=== PATIENT | female | born 1980 | race African-American/Black ===

== ENCOUNTER 2017-02-18 16:46 | Emergency (ER) | payer SELFPAY ==
[~2017-02-18] VITALS: Ht 170.2 cm; Wt 113.4 kg
[2017-02-18 17:15] VITALS: BP 133/60
[2017-02-18 17:56] LABS: BACTERIA,URINE FEW /HPF (0-FEW); BILIRUBIN,URINE NEGATIVE (NEG); GLUCOSE,URINE NEGATIVE (NEG); NITRITE,URINE NEGATIVE (NEG); PROTEIN,URINE NEGATIVE (NEG-TRACE); RBC,URINE 0 /HPF (0-2); SQUAMOUS EPITHELIAL CELL,UR MOD /LPF; UROBILINOGEN,URINE 0.2 mg/dL (0.2 mg/dL); WBC,URINE 0 /HPF (0-4)
[2017-02-18] MEDS ORDERED: FLUCONAZOLE 100 MG TABLET. PO ONE (18:00)
[2017-02-18] MEDS ORDERED: FENTANYL PF 100 MCG/2 ML VIAL. IV ONE (18:00)
[2017-02-18] MEDS ORDERED: FAMOTIDINE 20 MG/2 ML VIAL IVP ONE (18:00)
[2017-02-18] MEDS ORDERED: IV NORMAL SALINE 1000ML BAG 1,000 ML IV ONE (18:00)
[2017-02-18 18:08] LABS: BASO % 0 % (0-3); EOS % 1 % (0-3); HEMATOCRIT 39.9 % (36.0-47.0); LYMPH # 0.6 x10^3/uL (1.0-4.8); LYMPH % 11 % (24-48); MEAN CORPUSCULAR HEMOGLOBIN 30 pg (25-35); MEAN CORPUSCULAR HGB CONC 33 g/dL (31-37); MEAN CORPUSCULAR VOLUME 92 fL (79-100); MONO % 7 % (0-9); NEUT % 82 % (31-73); PLATELET COUNT 153 x10^3/uL (140-400); RED BLOOD COUNT 4.33 x10^6/uL (3.50-5.40); RED CELL DISTRIBUTION WIDTH 13.6 % (11.5-14.5); WHITE BLOOD COUNT 5.5 x10^3/uL (4.0-11.0)
[2017-02-18 18:31] LABS: CALCIUM 8.8 mg/dL (8.5-10.1); CREATININE 0.9 mg/dL (0.6-1.0); GFR 70.8
[2017-02-18] MEDS ORDERED: FAMO-63 PO (19:34)
[2017-02-18] MEDS ORDERED: ONDA4TAB7 PO (19:34)
[2017-02-18] MEDS ORDERED: HYDR25CA PO (19:34)
--- NOTE | 2017-02-18 19:34 | PHYS DOC ---
Past Medical History Past Medical History: STD Additional Past Medical Histor: ovarian cysts, stomach ulcer, Past Surgical History: Other Additional Past Surgical Histo: umbilical hernia repair Alcohol Use: None Drug Use: None Adult General Chief Complaint Chief Complaint: FLU SYMPTOM HPI HPI 36-year-old female who states she's having generalized myalgias and flulike illness for the last several days. She states she has children at home that have been recently ill with viral type illness. She states she's been nauseated with an upset stomach but has had no vomiting. He has had little to eat or drink today. She denies any history of health problems that she is aware of. She denies any recent illicit drug use or smoking history. Pt is anxious in the room but non-toxic in appearance. Review of Systems Review of Systems Constitutional: Has fever, has chills [] Eyes: Denies change in visual acuity, redness, or eye pain [] HENT: Denies nasal congestion or sore throat [] Respiratory: Denies cough or shortness of breath [] Cardiovascular: No additional information not addressed in HPI [] GI: Has abdominal pain, has nausea, denies vomiting, denies bloody stools or diarrhea [] : Denies dysuria or hematuria [] Musculoskeletal: Denies back pain or joint pain [] Integument: Denies rash or skin lesions [] Neurologic: Denies headache, focal weakness or sensory changes [] Endocrine: Denies polyuria or polydipsia [] Current Medications Current Medications Current Medications Medications (Trade) Dose Ordered Sig/Samantha Start Time Stop Time Status Last Admin Dose Admin Famotidine (Pepcid) 20 mg 1X ONCE 02/18/17 18:00 02/18/17 18:01 DC 02/18/17 18:41 20 MG Fentanyl Citrate (Fentanyl 2ml Vial) 50 mcg 1X ONCE 02/18/17 18:00 02/18/17 18:01 DC 02/18/17 18:43 50 MCG Fluconazole (Diflucan) 100 mg 1X ONCE 02/18/17 18:00 02/18/17 18:01 DC 02/18/17 18:44 100 MG Sodium Chloride (Iv Sodium Chloride 0.9% 1000ml Bag) 1,000 ml @ 1,000 mls/hr 1X ONCE 02/18/17 18:00 02/18/17 18:59 DC 02/18/17 18:53 1,000 MLS/HR Allergies Allergies Allergies Coded Allergies Type Severity Reaction Last Updated Verified naproxen Allergy Intermediate 02/18/17 Yes Physical Exam Physical Exam Constitutional: Well developed, well nourished, no acute distress, non-toxic appearance. [] HENT: Normocephalic, atraumatic, bilateral external ears normal, oropharynx moist, no oral exudates, nose normal. [] Eyes: PERRLA, EOMI, conjunctiva normal, no discharge. [] Neck: Normal range of motion, no tenderness, supple, no stridor. [] Cardiovascular:Heart rate regular rhythm, no murmur [] Lungs & Thorax: Bilateral breath sounds clear to auscultation [] Abdomen: Bowel sounds normal, soft, no tenderness, no masses, no pulsatile masses. [] Skin: Warm, dry, no erythema, no rash. [] Back: No tenderness, no CVA tenderness. [] Extremities: No tenderness, no cyanosis, no clubbing, ROM intact, no edema. [] Neurologic: Alert and oriented X 3, normal motor function, normal sensory function, no focal deficits noted. [] Psychologic: Affect normal, judgement normal, mood normal. [] Current Patient Data Vital Signs Vital Signs Date Time Temp Pulse Resp B/P Pulse Ox O2 Delivery O2 Flow Rate FiO2 02/18/17 18:43 18 97 Room Air 02/18/17 17:15 99.9 91 133/60 99.9 Lab Values Laboratory Tests Test 02/18/17 17:00 02/18/17 18:50 White Blood Count 5.5x10^3/uL (4.0-11.0) Red Blood Count 4.33x10^6/uL (3.50-5.40) Hemoglobin 13.0g/dL (12.0-15.5) Hematocrit 39.9% (36.0-47.0) Mean Corpuscular Volume 92fL (79-100) Mean Corpuscular Hemoglobin 30pg (25-35) Mean Corpuscular Hemoglobin Concent 33g/dL (31-37) Red Cell Distribution Width 13.6% (11.5-14.5) Platelet Count 153x10^3/uL (140-400) Neutrophils (%) (Auto) 82% (31-73) H Lymphocytes (%) (Auto) 11% (24-48) L Monocytes (%) (Auto) 7% (0-9) Eosinophils (%) (Auto) 1% (0-3) Basophils (%) (Auto) 0% (0-3) Neutrophils # (Auto) 4.4x10^3uL (1.8-7.7) Lymphocytes # (Auto) 0.6x10^3/uL (1.0-4.8) L Monocytes # (Auto) 0.4x10^3/uL (0.0-1.1) Eosinophils # (Auto) 0.0x10^3/uL (0.0-0.7) Basophils # (Auto) 0.0x10^3/uL (0.0-0.2) Urine Collection Type Unknown Urine Color Yellow Urine Clarity Clear Urine pH 6.0 Urine Specific [place] 1.015 Urine Protein Negativemg/dL (NEG-TRACE) Urine Glucose (UA) Negativemg/dL (NEG) Urine Ketones (Stick) Negativemg/dL (NEG) Urine Blood Negative (NEG) Urine Nitrite Negative (NEG) Urine Bilirubin Negative (NEG) Urine Urobilinogen Dipstick 0.2mg/dL (0.2 mg/dL) Urine Leukocyte Esterase Negative (NEG) Urine RBC 0/HPF (0-2) Urine WBC 0/HPF (0-4) Urine Squamous Epithelial Cells Mod/LPF Urine Bacteria Few/HPF (0-FEW) Urine Mucus Mod/LPF Sodium Level 139mmol/L (136-145) Potassium Level 4.0mmol/L (3.5-5.1) Chloride Level 105mmol/L (98-107) Carbon Dioxide Level 22mmol/L (21-32) Anion Gap 12 (6-14) Blood Urea Nitrogen 12mg/dL (7-20) Creatinine 0.9mg/dL (0.6-1.0) Estimated GFR (Cockcroft-Gault) 70.8 Glucose Level 86mg/dL (70-99) Calcium Level 8.8mg/dL (8.5-10.1) Influenza Type A Antigen Negative (NEGATIVE) Influenza Type B Antigen Negative (NEGATIVE) Laboratory Tests 02/18/17 17:00 Laboratory Tests 02/18/17 17:00 EKG EKG [] Radiology/Procedures Radiology/Procedures [] Course & Med Decision Making Course & Med Decision Making Pertinent Labs and Imaging studies reviewed. (See chart for details) This 36-year-old female with subjective febrile illness had a laboratory workup that was unrevealing. Patient is given fluid bolus and a dose of pain control. Patient was afebrile while in the department. I will be discharging her with a course of Pepcid and Zofran with instruction to follow closely with her primary care physician. Patient was provided follow up instructions and a primary care physician contact as she does not have one. Her symptoms are likely related to a viral illness. Her flu swabs were negative. She was discharged feeling improved. Dragon Disclaimer Dragon Disclaimer This electronic medical record was generated, in whole or in part, using a voice recognition dictation system. Departure Departure Impression: Primary Impression: Viral syndrome Additional Impressions: Myalgia Nausea Disposition: HOME, SELF-CARE Admitting Physician: Other Condition: IMPROVED Referrals: NON,STAFF (PCP) Patient Instructions: Viral Exanthems, Adult, Viral Gastroenteritis, Easy-to- Read Additional Instructions: Please take your medications as prescribed and follow up with your primary doctor in the next 2-3 days for your symptoms. Continue to stay well hydrated at home. Return to the ER if you develop any worsening of your symptoms. Scripts Hydroxyzine Pamoate (Vistaril)25 Mg [id number] Mg PO 1X PRN ITCHING #15 CAP Prov:DESIREE SCHWARZ DO 02/18/17 Famotidine (Pepcid)20 Mg [id number] Mg PO HS #10 TAB Prov:DESIREE SCHWARZ DO 02/18/17 Ondansetron Hcl (Zofran)4 Mg Tablet4 Mg PO BID PRN NAUSEA/VOMITING #10 TAB Prov:DESIREE SCHWARZ DO 02/18/17 Problem Qualifiers DESIREE SCHWARZ DO Feb 18, 2017 19:34
[2017-02-18 20:07] LABS: OBC FLU VALID
== END 2017-02-18 19:45 | disposition home or self-care (01) ==
LOC: ER 16:46
DX: B34.9 Viral infection, unspecified (principal); M79.1 Myalgia; R11.0 Nausea; Z87.19 Personal history of other diseases of the digestive system; Z88.6 Allergy status to analgesic agent
CPT/HCPCS: 36415; 80048; 81001; 81025; 85027; 87804; 96361; 96374; 96375; 99284; J3010; J7030; S0028

== ENCOUNTER 2017-11-05 11:32 | Emergency (ER) | payer OTHER ==
[~2017-11-05] VITALS: Ht 170.2 cm; Wt 113.4 kg
[~2017-11-05 11:32] MED LIST: FAMO-63 PO; HYDR25CA PO; ONDA4TAB7 PO
[2017-11-05] MEDS ORDERED: ACETAMINOPHEN 500 MG TABLET PO ONE (12:00)
[2017-11-05] MEDS ORDERED: IPRATRPIUM/ALBUTEROL 0.5/2.5MG 3 ML NEBU. NEB ONE (12:00)
--- NOTE | 2017-11-05 12:11 | PHYS DOC ---
Past Medical History Past Medical History: STD Additional Past Medical Histor: ovarian cysts, stomach ulcer, Past Surgical History: Other Additional Past Surgical Histo: umbilical hernia repair Alcohol Use: None Drug Use: None Adult General Chief Complaint Chief Complaint: COUGH HPI HPI Patient is a 37 year old female who presents ambulatory to the ED. Patient states she is 9 weeks . Patient complains of a cough, her face and head is hurting, yellow green phlegm which causes her to be nauseated. She has felt short of air. She has had chills and felt feverish. Her temp is 100. She's been sick for about 24 hours. Denies vomiting. She did take one Tylenol 500 mg total earlier this morning before 8:00. Patient has not had a flu shot. Patient has her new OB appointment at [facility] tomorrow. She has had gestational diabetes with previous pregnancies. Also has a history of asthma and takes pro-air inhaler. She last used it about 2 hours ago. Review of Systems Review of Systems Constitutional: Positive fever and chills. HENT: Positive face and nasal congestion and pain, throat is scratchy from coughing so much Respiratory: As in history of present illness GI: Denies vomiting : Patient states she is 9 weeks Current Medications Current Medications Current Medications Medications (Trade) Dose Ordered Sig/Samantha Start Time Stop Time Status Last Admin Dose Admin Acetaminophen (Tylenol) 1,000 mg 1X ONCE 11/05/17 12:00 11/05/17 12:01 DC 11/05/17 12:10 1,000 MG Albuterol/ Ipratropium (Duoneb) 3 ml 1X ONCE 11/05/17 12:00 11/05/17 12:01 DC 11/05/17 12:04 3 ML Oseltamivir Phosphate (Tamiflu) 75 mg 1X ONCE 11/05/17 13:00 11/05/17 13:01 DC 11/05/17 13:04 75 MG Allergies Allergies Allergies Coded Allergies Type Severity Reaction Last Updated Verified naproxen Allergy Intermediate 02/18/17 Yes Physical Exam Physical Exam Constitutional: Well developed, well nourished, alert, mentating normally, appears to not feel well, appears to be having chills HENT: Normocephalic, atraumatic, bilateral external ears normal, nose normal. [ ] Eyes: conjunctiva normal, no discharge. [] Neck: Normal range of motion, no stridor. [] Cardiovascular:Heart rate regular rhythm, no murmur [] Lungs & Thorax: Breath sounds present bilaterally, expiratory wheezes present throughout, good air movement throughout Skin: Warm, dry, no erythema, no rash. [] Extremities: No tenderness, no cyanosis, no clubbing, ROM intact, no edema. [] Neurologic: Alert and oriented X 3, normal motor function, no focal deficits noted. [] Current Patient Data Vital Signs Vital Signs Date Time Temp Pulse Resp B/P (MAP) Pulse Ox O2 Delivery O2 Flow Rate FiO2 11/05/17 13:31 104 123/60 (81) Room Air 11/05/17 12:04 96 11/05/17 11:45 100.4 20 100.4 Lab Values Laboratory Tests Test 11/05/17 11:56 Influenza Type A Antigen Negative (NEGATIVE) Influenza Type B Antigen Positive (NEGATIVE) EKG EKG [] Radiology/Procedures Radiology/Procedures [] Course & Med Decision Making Course & Med Decision Making Pertinent Labs and Imaging studies reviewed. (See chart for details) 37-year-old female who is 9 weeks presents with 24 hours of fever, chills, cough, face, sinus congestion. She does have a diagnosis of asthma and is wheezing. We will give her some Tylenol, a breathing treatment, and check an influenza test. Influenza swab positive for influenza B. She was given her first dose of Tamiflu. She felt better after a dose of Tylenol and a breathing treatment. I believe she is stable for discharge. She was cautioned to stay home to avoid spreading influenza. See instructions for plan. [] Dragon Disclaimer Dragon Disclaimer This electronic medical record was generated, in whole or in part, using a voice recognition dictation system. Departure Departure Impression: Primary Impression: Influenza B Additional Impression: Asthma attack Disposition: 01 HOME, SELF-CARE Condition: STABLE Referrals: NICOLE CANNON JR, MD (PCP) Additional Instructions: Your test was positive for influenza. Influenza is a contagious virus. We will start you on a medication to help keep it from being so bad. You had your first dose in the emergency department, your next dose is due at bedtime tonight. Stay inside, stay away from other people, reschedule your new OB appointment, you should not go to the OB doctor's office while you have influenza. Good handwashing, if family members start to get sick, they should see their doctor right away. Drink plenty of fluids. Take Tylenol/acetaminophen 1000 mg every 6 hours for fever. Scripts Prednisone (PREDNISONE) 20 Mg Tablet 40 MG PO DAILY for asthma for 5 Days, #10 TAB Prov: SOULEYMANE OTERO MD 11/05/17 Oseltamivir Phosphate (TAMIFLU) 75 Mg Capsule 1 CAP PO BID for influenza, #10 CAP Prov: SOULEYMANE OTERO MD 11/05/17 Problem Qualifiers SOULEYMANE OTERO MD Nov 05, 2017 12:11
[2017-11-05 12:30] LABS: OBC FLU VALID
[2017-11-05] MEDS ORDERED: OSELTAMIVIR 75 MG CAPSULE PO ONE (13:00)
[2017-11-05 13:31] VITALS: BP 123/60
[2017-11-05] MEDS ORDERED: OSEL75CA PO (13:31)
[2017-11-05] MEDS ORDERED: PRED20TA PO (13:35)
== END 2017-11-05 13:48 | disposition home or self-care (01) ==
LOC: ER 11:32
DX: O99.511 Diseases of the respiratory system complicating pregnancy, first trimester (principal); J10.1 Influenza due to other identified influenza virus with other respiratory manifestations; J45.909 Unspecified asthma, uncomplicated; Z87.19 Personal history of other diseases of the digestive system; Z3A.09 9 weeks gestation of pregnancy; Z79.899 Other long term (current) drug therapy; Z88.6 Allergy status to analgesic agent
CPT/HCPCS: 87804; 94640; 99284; J7620

== ENCOUNTER 2018-02-16 14:23 | Observation (INO) | payer OTHER | END 2018-02-16 16:50 | disposition home or self-care (01) | LOC: 3 SO LND 14:23 | DX: O26.899 Other specified pregnancy related conditions, unspecified trimester (principal); R30.9 Painful micturition, unspecified; M54.9 Dorsalgia, unspecified; Z3A.00 Weeks of gestation of pregnancy not specified | CPT/HCPCS: G0378; G0379 ==

== ENCOUNTER 2020-04-26 18:46 | Emergency (ER) | payer OTHER ==
[~2020-04-26] VITALS: Ht 172.1 cm; Wt 110.5 kg
[~2020-04-26 18:46] MED LIST changes: +OSEL75CA PO; +PRED20TA PO
[2020-04-26 19:31] LABS: BILIRUBIN,URINE NEGATIVE (NEG); CLARITY,URINE CLOUDY; NITRITE,URINE POSITIVE (NEG); PH,URINE 6.5 (<5.0-8.0); PROTEIN,URINE 30 mg/dL (NEG-TRACE); UROBILINOGEN,URINE 0.2 mg/dL (0.2 mg/dL)
[2020-04-26 19:39] LABS: COLOR,URINE YELLOW
[2020-04-26 19:40] LABS: SQUAMOUS EPITHELIAL CELL,UR FEW /LPF
[2020-04-26 19:41] LABS: BACTERIA,URINE MODERATE /HPF (0-FEW); WBC,URINE TNTC /HPF (0-4)
[2020-04-26] MEDS ORDERED: CEPHALEXIN 250 MG CAPSULE. PO STA (20:14)
[2020-04-26] MEDS ORDERED: FLUCONAZOLE 100 MG TABLET. PO ONE (20:15)
[2020-04-26 20:16] VITALS: BP 114/68
--- NOTE | 2020-04-26 20:25 | PHYS DOC ---
Past Medical History Past Medical History: Asthma, STD, Other Additional Past Medical Histor: ovarian cysts, stomach ulcer, PREDIABETES Past Surgical History: , Other Additional Past Surgical Histo: umbilical hernia repair Smoking Status: Never Smoker Alcohol Use: Occasionally Drug Use: Cocaine, Marijuana General Adult EDM: Chief Complaint: PAIN ON URINATION HPI: HPI: Patient is a 40 year old female who presents to the ED today complaining of suprapubic abdominal pain with dysuria and frequency, symptoms began a week ago. Patient denies any fever. Denies any chance she is . She reports trying to use Azo with no relief. Review of Systems: Review of Systems: Constitutional: Denies fever or chills. [] Eyes: Denies change in visual acuity. [] HENT: Denies nasal congestion or sore throat. [] Respiratory: Denies cough or shortness of breath. [] Cardiovascular: Denies chest pain or edema. [] GI: Denies abdominal pain, nausea, vomiting, bloody stools or diarrhea. [] : Reports suprapubic pain. Reports dysuria. Reports frequency. Musculoskeletal: Denies back pain or joint pain. [] Integument: Denies rash. [] Neurologic: Denies headache, focal weakness or sensory changes. [] Endocrine: Denies polyuria or polydipsia. [] Lymphatic: Denies swollen glands. [] Psychiatric: Denies depression or anxiety. [] Heart Score: Risk Factors: Risk Factors: DM, Current or recent (<one month) smoker, HTN, HLP, family history of CAD, obesity. Risk Scores: Score 0 - 3: 2.5% MACE over next 6 weeks - Discharge Home Score 4 - 6: 20.3% MACE over next 6 weeks - Admit for Clinical Observation Score 7 - 10: 72.7% MACE over next 6 weeks - Early Invasive Strategies Current Medications: Current Medications Medications (Trade) Dose Ordered Sig/Samantha Start Time Stop Time Status Last Admin Dose Admin Cephalexin HCl (Keflex) 500 mg 1X STAT 04/26/20 20:14 04/26/20 20:23 DC Fluconazole (Diflucan) 150 mg 1X ONCE 04/26/20 20:15 04/26/20 20:23 DC Allergies: Allergies: Allergies Coded Allergies Type Severity Reaction Last Updated Verified naproxen Allergy Intermediate 02/18/17 Yes Physical Exam: PE: Constitutional: Well developed, well nourished, no acute distress, non-toxic appearance. [] HENT: Normocephalic, atraumatic, bilateral external ears normal, oropharynx moist, no oral exudates, nose normal. [] Eyes: PERRLA, EOMI, conjunctiva normal, no discharge. [] Neck: Normal range of motion, no tenderness, supple, no stridor. [] Cardiovascular:Heart rate regular rhythm, no murmur [] Lungs & Thorax: Bilateral breath sounds clear to auscultation [] Abdomen: Bowel sounds normal, soft, no tenderness, no masses, no pulsatile mass es. [] Skin: Warm, dry, no erythema, no rash. [] Back: No tenderness, no CVA tenderness. [] Extremities: No tenderness, no cyanosis, no clubbing, ROM intact, no edema. [] Neurologic: Alert and oriented X 3, normal motor function, normal sensory function, no focal deficits noted. [] Psychologic: Affect normal, judgement normal, mood normal. [] Current Patient Data: Labs: Laboratory Tests Test 04/26/20 19:00 04/26/20 19:24 Urine Collection Type Unknown Urine Color Yellow Urine Clarity Cloudy Urine pH 6.5 (<5.0-8.0) Urine Specific [place] 1.025 (1.000-1.030) Urine Protein 30 mg/dL (NEG-TRACE) Urine Glucose (UA) >=1000 mg/dL (NEG) Urine Ketones (Stick) Negative mg/dL (NEG) Urine Blood Moderate (NEG) Urine Nitrite Positive (NEG) Urine Bilirubin Negative (NEG) Urine Urobilinogen Dipstick 0.2 mg/dL (0.2 mg/dL) Urine Leukocyte Esterase Large (NEG) Urine RBC 6-10 /HPF (0-2) Urine WBC Tntc /HPF (0-4) Urine Squamous Epithelial Cells Few /LPF Urine Bacteria Moderate /HPF (0-FEW) Urine Mucus Slight /LPF POC Urine HCG, Qualitative Hcg negative (Negative) Vital Signs: Vital Signs Date Time Temp Pulse Resp B/P (MAP) Pulse Ox O2 Delivery O2 Flow Rate FiO2 04/26/20 19:10 98.2 88 16 123/72 (89) 99 Room Air 98.2 EKG: EKG: [] Radiology/Procedures: Radiology/Procedures: [] Course & Med Decision Making: Course & Med Decision Making Pertinent Labs and Imaging studies reviewed. (See chart for details) This is a 40-year-old female patient presenting to the ED today with UTI symptoms. Positive for UTI, discharged with cephalexin and fluconazole per her request for possible yeast infection on antibiotics. Instructed to push fluids. Follow-up with PCP in 1 to 2 weeks. Dragon Disclaimer: Dragon Disclaimer: This electronic medical record was generated, in whole or in part, using a voice recognition dictation system. Departure Departure Impression: Primary Impression: Urinary tract infection Qualified Codes: N39.0 - Urinary tract infection, site not specified Disposition: HOME, SELF-CARE Condition: STABLE Referrals: NICOLE CANNON JR, MD (PCP) Follow-up in 1 to 2 weeks Patient Instructions: Urinary Tract Infection Additional Instructions: You have urinary tract infection. Complete your antibiotics. Follow-up with your doctor in 1 to 2 weeks. Scripts Fluconazole (DIFLUCAN) 150 Mg Tablet 1 TAB PO ONCE, #1 TAB take in 7 days Prov: MAGY ADDISON APRN 04/26/20 Cephalexin (CEPHALEXIN) 500 Mg Tablet 1 TAB PO BID, #14 TAB Prov: MAGY ADDISON APRN 04/26/20 Justicifation of Admission Dx: Justifications for Admission: Justification of Admission Dx: N/A MAGY ADDISON APRN Apr 26, 2020 20:25
[2020-04-26] MEDS ORDERED: CEPH500T PO (20:28)
[2020-04-26] MEDS ORDERED: FLUC150T PO (20:28)
== END 2020-04-26 20:35 | disposition home or self-care (01) ==
LOC: ER 18:46
DX: N39.0 Urinary tract infection, site not specified (principal); J45.909 Unspecified asthma, uncomplicated; Z98.890 Other specified postprocedural states; Z88.5 Allergy status to narcotic agent
CPT/HCPCS: 81001; 81025; 87086; 99283

== ENCOUNTER 2020-07-19 06:01 | Emergency (ER) | payer OTHER ==
[~2020-07-19] VITALS: Ht 172.7 cm; Wt 112.2 kg
[~2020-07-19 06:01] MED LIST changes: +CEPH500T PO; +FLUC150T PO
[2020-07-19] MEDS ORDERED: FAMOTIDINE 20 MG/2 ML VIAL IVP ONE (07:30)
[2020-07-19] MEDS ORDERED: LIDO:MAALOX 1:1 20 ML SINGLE DOSE. SWSW ONE (07:30)
--- NOTE | 2020-07-19 07:42 | PHYS DOC ---
Past Medical History Past Medical History: Asthma, STD, Other Additional Past Medical Histor: ovarian cysts, stomach ulcer, PREDIABETES Past Surgical History: , Other Additional Past Surgical Histo: umbilical hernia repair Smoking Status: Never Smoker Alcohol Use: Occasionally Drug Use: Cocaine, Marijuana General Adult EDM: Chief Complaint: MULTIPLE COMPLAINTS HPI: HPI: Patient is a 40 year old female who presented to ER today for evaluation of epigastric abdominal pain that she has been dealing with for several months. Patient has history of acid reflux, she was supposed to take PPI however she said whenever she was on PPI increased the chance of her getting UTI since she started taking the PPI. So she stopped taking the medication. Patient denies any fever, no cough, no chest pain, no trouble breathing. Review of Systems: Review of Systems: Constitutional: Denies fever or chills. [] Eyes: Denies change in visual acuity. [] HENT: Denies nasal congestion or sore throat. [] Respiratory: Denies cough or shortness of breath. [] Cardiovascular: Denies chest pain or edema. [] GI: Positive for abdominal pain, nausea no diarrhea. No vomiting. : Denies dysuria. [] Musculoskeletal: Denies back pain or joint pain. [] Integument: Denies rash. [] Neurologic: Denies headache, focal weakness or sensory changes. [] Endocrine: Denies polyuria or polydipsia. [] Lymphatic: Denies swollen glands. [] Psychiatric: Denies depression or anxiety. [] Heart Score: Risk Factors: Risk Factors: DM, Current or recent (<one month) smoker, HTN, HLP, family history of CAD, obesity. Risk Scores: Score 0 - 3: 2.5% MACE over next 6 weeks - Discharge Home Score 4 - 6: 20.3% MACE over next 6 weeks - Admit for Clinical Observation Score 7 - 10: 72.7% MACE over next 6 weeks - Early Invasive Strategies Current Medications: Current Medications Medications (Trade) Dose Ordered Sig/Samantha Start Time Stop Time Status Last Admin Dose Admin Famotidine (Pepcid Vial) 20 mg 1X ONCE 07/19/20 07:30 07/19/20 07:31 DC Multi-Ingredient Mouthwash/Gargle (Gi Cocktail) 20 ml 1X ONCE 07/19/20 07:30 07/19/20 07:31 DC Allergies: Allergies: Allergies Coded Allergies Type Severity Reaction Last Updated Verified naproxen Allergy Intermediate 02/18/17 Yes Physical Exam: PE: Constitutional: Well developed, well nourished, no acute distress, non-toxic appearance. [] HENT: Normocephalic, atraumatic, bilateral external ears normal, oropharynx moist, no oral exudates, nose normal. [] Eyes: PERRLA, EOMI, conjunctiva normal, no discharge. [] Neck: Normal range of motion, no tenderness, supple, no stridor. [] Cardiovascular:Heart rate regular rhythm, no murmur [] Lungs & Thorax: Bilateral breath sounds clear to auscultation [] Abdomen: Bowel sounds normal, soft, no tenderness, no masses, no pulsatile masses. [] Skin: Warm, dry, no erythema, no rash. [] Back: No tenderness, no CVA tenderness. [] Extremities: No tenderness, no cyanosis, no clubbing, ROM intact, no edema. [] Neurologic: Alert and oriented X 3, normal motor function, normal sensory function, no focal deficits noted. [] Psychologic: Affect normal, judgement normal, mood normal. [] Current Patient Data: Labs: Laboratory Tests Test 07/19/20 06:30 07/19/20 06:38 07/19/20 07:44 Urine Collection Type Unknown Urine Color Yellow Urine Clarity Clear Urine pH 6.0 Urine Specific [place] 1.025 Urine Protein Negative mg/dL Urine Glucose (UA) >=1000 mg/dL Urine Ketones (Stick) Negative mg/dL Urine Blood Negative Urine Nitrite Negative Urine Bilirubin Negative Urine Urobilinogen Dipstick 0.2 mg/dL Urine Leukocyte Esterase Negative Urine RBC 0 /HPF Urine WBC 0 /HPF Urine Squamous Epithelial Cells Few /LPF Urine Bacteria 0 /HPF Bedside Urine HCG, Qualitative Hcg negative White Blood Count 5.3 x10^3/uL Red Blood Count 4.55 x10^6/uL Hemoglobin 13.4 g/dL Hematocrit 40.4 % Mean Corpuscular Volume 89 fL Mean Corpuscular Hemoglobin 29 pg Mean Corpuscular Hemoglobin Concent 33 g/dL Red Cell Distribution Width 15.1 % Platelet Count 166 x10^3/uL Neutrophils (%) (Auto) 57 % Lymphocytes (%) (Auto) 29 % Monocytes (%) (Auto) 8 % Eosinophils (%) (Auto) 5 % Basophils (%) (Auto) 1 % Neutrophils # (Auto) 3.0 x10^3/uL Lymphocytes # (Auto) 1.6 x10^3/uL Monocytes # (Auto) 0.4 x10^3/uL Eosinophils # (Auto) 0.3 x10^3/uL Basophils # (Auto) 0.0 x10^3/uL Sodium Level 137 mmol/L Potassium Level 4.1 mmol/L Chloride Level 104 mmol/L Carbon Dioxide Level 26 mmol/L Anion Gap 7 Blood Urea Nitrogen 11 mg/dL Creatinine 0.8 mg/dL Estimated GFR (Cockcroft-Gault) 96.1 BUN/Creatinine Ratio 14 Glucose Level 269 mg/dL Calcium Level 8.2 mg/dL Total Bilirubin 0.4 mg/dL Aspartate Amino Transf (AST/SGOT) 13 U/L Alanine Aminotransferase (ALT/SGPT) 12 U/L Alkaline Phosphatase 95 U/L Total Protein 7.1 g/dL Albumin 3.3 g/dL Albumin/Globulin Ratio 0.9 Lipase 138 U/L Current Medications Medications (Trade) Dose Ordered Sig/Samantha Route PRN Reason Start Time Stop Time Status Last Admin Dose Admin Multi-Ingredient Mouthwash/Gargle (Gi Cocktail) 20 ml 1X ONCE SWSW 07/19/20 07:30 07/19/20 07:31 DC 07/19/20 07:53 Famotidine (Pepcid Vial) 20 mg 1X ONCE IVP 07/19/20 07:30 07/19/20 07:31 DC 07/19/20 07:54 Laboratory Tests Test 07/19/20 06:38 POC Urine HCG, Qualitative Hcg negative (Negative) EKG: EKG: [] Radiology/Procedures: Radiology/Procedures: [][facility] [address] [place] [address] IMAGING REPORT Signed PATIENT: LAKISHA CHAVEZ ACCOUNT: [id number] : 1980 LOCATION: ER AGE: 40 SEX: F EXAM STATUS: REG ER ORD. PHYSICIAN: AMINTA TREVIÑO DO REASON: abdominal pain, nausea, vomiting PROCEDURE: ACUTE ABDOMEN SERIES Acute Abdominal Series: Technique: PA view of the chest and supine and upright views of the abdomen were obtained. History: Abdominal pain nausea and vomiting. Comparison: None. Findings: The lungs and pleural margins are clear. There is air and stool scattered throughout portions the colon. There is air within a few loops of small bowel. There is no abnormally dilated bowel. There is no free air. Impression: Nonspecific nonobstructive bowel gas pattern. Electronically signed by: Lawson Rose III, MD (07/19/2020 8:52 AM) [id number] DICTATED and SIGNED BY: LAWSON ROSE III, MD DATE: 07/19/20 0852 Course & Med Decision Making: Course & Med Decision Making Pertinent Labs and Imaging studies reviewed. (See chart for details) [] Dragon Disclaimer: Dragon Disclaimer: This electronic medical record was generated, in whole or in part, using a voice recognition dictation system. Departure Departure Impression: Primary Impression: Gastritis Disposition: HOME, SELF-CARE Condition: IMPROVED Referrals: NICOLE CANNON JR, MD (PCP) PLEASE FOLLOW UP WITH YOUR FAMILY PHYSICIAN NEXT WEEK FOR A REFERRAL TO GI SPECIALIST FOR FURTHER EVALUATION AND TREATMENT Patient Instructions: Gastritis, Adult Additional Instructions: Thank you for visiting our Emergency Department. We appreciate you trusting us with your care. If any additional problems come up don't hesitate to return to visit us. Please follow up with your primary care provider so they can plan additional care if needed and know about the problem that you had. If symptoms worsen come back to the Emergency Department. Any concerning symptoms that start such as chest pain, shortness of air, weakness or numbness on one side of the body, running high fevers or any other concerning symptoms return to the ER. Scripts Famotidine (PEPCID) 40 Mg Tablet 40 MG PO HS for 30 Days, #30 TAB Prov: AMINTA TREVIÑO DO 07/19/20 Sucralfate (CARAFATE) 1 Gm Tablet 1 TAB PO QID for 14 Days, #56 TAB 0 Refills Prov: AMINTA TREVIÑO DO 07/19/20 Justicifation of Admission Dx: Justifications for Admission: Justification of Admission Dx: N/A AMINTA TREVIÑO DO Jul 19, 2020 07:41
[2020-07-19 07:59] LABS: BILIRUBIN,URINE NEGATIVE (NEG); CLARITY,URINE CLEAR; COLOR,URINE YELLOW; NITRITE,URINE NEGATIVE (NEG); PROTEIN,URINE NEGATIVE (NEG-TRACE); UROBILINOGEN,URINE 0.2 mg/dL (0.2 mg/dL)
[2020-07-19 08:02] LABS: BASO % 1 % (0-3); EOS # 0.3 x10^3/uL (0.0-0.7); EOS % 5 % (0-3); HEMATOCRIT 40.4 % (36.0-47.0); HEMOGLOBIN 13.4 g/dL (12.0-15.5); LYMPH # 1.6 x10^3/uL (1.0-4.8); LYMPH % 29 % (24-48); MEAN CORPUSCULAR HEMOGLOBIN 29 pg (25-35); MEAN CORPUSCULAR HGB CONC 33 g/dL (31-37); MEAN CORPUSCULAR VOLUME 89 fL (79-100); MONO # 0.4 x10^3/uL (0.0-1.1); MONO % 8 % (0-9); NEUT % 57 % (31-73); PLATELET COUNT 166 x10^3/uL (140-400); RED BLOOD COUNT 4.55 x10^6/uL (3.50-5.40); RED CELL DISTRIBUTION WIDTH 15.1 % (11.5-14.5); WHITE BLOOD COUNT 5.3 x10^3/uL (4.0-11.0)
[2020-07-19 08:08] LABS: CALCIUM 8.2 mg/dL (8.5-10.1); CREATININE 0.8 mg/dL (0.6-1.0); GFR 96.1; POTASSIUM 4.1 mmol/L (3.5-5.1)
[2020-07-19 08:13] LABS: ALBUMIN 3.3 g/dL (3.4-5.0); ALBUMIN/GLOBULIN RATIO 0.9 (1.0-1.7); TOTAL BILIRUBIN 0.4 mg/dL (0.2-1.0); TOTAL PROTEIN 7.1 g/dL (6.4-8.2)
[2020-07-19 08:14] LABS: BACTERIA,URINE 0 /HPF (0-FEW); RBC,URINE 0 /HPF (0-2); SQUAMOUS EPITHELIAL CELL,UR FEW /LPF; WBC,URINE 0 /HPF (0-4)
--- NOTE | 2020-07-19 08:55 | RAD ---
Acute Abdominal Series: Technique: PA view of the chest and supine and upright views of the abdomen were obtained. History: Abdominal pain nausea and vomiting. Comparison: None. Findings: The lungs and pleural margins are clear. There is air and stool scattered throughout portions the colon. There is air within a few loops of small bowel. There is no abnormally dilated bowel. There is no free air. Impression: Nonspecific nonobstructive bowel gas pattern. Electronically signed by: Getachew James III, MD (07/19/2020 8:52 AM) [id number]
[2020-07-19 09:00] VITALS: BP 132/86
[2020-07-19] MEDS ORDERED: FAMO40TA57 PO (09:26)
[2020-07-19] MEDS ORDERED: SUCR1TAB35 PO (09:26)
== END 2020-07-19 10:00 | disposition home or self-care (01) ==
LOC: ER 06:01
DX: K29.70 Gastritis, unspecified, without bleeding (principal); J45.909 Unspecified asthma, uncomplicated; K21.9 Gastro-esophageal reflux disease without esophagitis; Z98.890 Other specified postprocedural states; Z88.5 Allergy status to narcotic agent
CPT/HCPCS: 36415; 74022; 80053; 81001; 81025; 83690; 85025; 96374; 99284; J3490